=== PATIENT | male | born 1930 | race Caucasian/White ===

== ENCOUNTER 2016-04-13 10:53 | Outpatient (CLI) | payer MEDICARE ==
[2016-04-13 15:37] LABS: Prothrombin Time 24.2 SEC (12.0-14.7)
== END 2016-04-13 10:54 | disposition home or self-care (01) ==
LOC: NAVSJIPCSP 10:53
PROVIDERS: ATTEND Family Medicine
DX: I48.0 Paroxysmal atrial fibrillation (principal)
CPT/HCPCS: 36415; 85610

== ENCOUNTER 2016-04-13 12:44 | Outpatient (CLI) | payer MEDICARE | END 2016-04-13 12:45 | disposition home or self-care (01) | LOC: NAVSJIPCSP 12:44 | PROVIDERS: ATTEND Family Medicine | DX: I48.0 Paroxysmal atrial fibrillation (principal) ==

== ENCOUNTER 2016-05-24 08:20 | Outpatient (CLI) | payer MEDICARE ==
[2016-05-24 12:34] LABS: #Basophils 0.1 thou/uL (0.0-0.2); #Eosinphils 0.4 thou/uL (0.0-0.7); #Lymphocytes 1.5 thou/uL (1.20-3.40); #Monocytes 0.5 thou/uL (0.11-0.59); #Neutrophils 4.3 thou/uL (1.40-6.50); %Basophils 1.3 % (0.0-1.0); %Eosinophils 5.6 % (0.0-10.0); %Lymphocytes 22.3 % (21.0-51.0); %Monocytes 7.9 % (0.0-10.0); Hematocrit 48.2 % (42.0-52.0); Mean Platelet Volume 7.4 fL (7.4-10.4); Red Blood Cell (RBC) Count 5.57 mill/uL (4.70-6.10); White Blood Cell (WBC) Count 6.9 thou/uL (4.8-10.8)
[2016-05-24 12:44] LABS: ALT (SGPT) 34 U/L (0-55); AST (SGOT) 31 U/L (5-34); Alkaline Phosphatase 59 U/L (40-150); Anion Gap 17 mmol/L (10-20); BUN (Urea Nitrogen) 17 mg/dL (8.4-25.7); Bilirubin, Direct 0.3 mg/dL (0.1-0.3); Bilirubin, Total 0.8 mg/dL (0.2-1.2); Calc. Creatinine Clearance 0 mL/min (70-130); Calcium 9.2 mg/dL (7.8-10.44); Carbon Dioxide 20 mmol/L (23-31); Chloride 107 mmol/L (98-107); Estimated GFR-MDRD 75; LDL Cholesterol, Calculated 53 mg/dL; Protein, Total 6.7 g/dL (5.8-8.1)
[2016-05-24 12:53] LABS: Hemoglobin A1c 5.7 % (4.0-6.0)
[2016-05-24 13:23] LABS: Prothrombin Time 20.9 SEC (12.0-14.7)
== END 2016-05-24 08:21 ==
LOC: NAVSJIPCSP 08:20
PROVIDERS: ATTEND Family Medicine
DX: Z00.8 Encounter for other general examination (principal); E78.5 Hyperlipidemia, unspecified; I48.0 Paroxysmal atrial fibrillation; I10 Essential (primary) hypertension; Z79.899 Other long term (current) drug therapy
CPT/HCPCS: 36415; 80048; 80061; 80076; 83036; 84443; 85025; 85610

== ENCOUNTER 2016-06-29 14:13 | Outpatient (CLI) | payer MEDICARE ==
[2016-06-29 15:43] LABS: INR-International Normal Ratio 2.5; Prothrombin Time 28.1 SEC (12.0-14.7)
== END 2016-06-29 14:14 | disposition home or self-care (01) ==
LOC: NAV LABSP 14:13
PROVIDERS: ATTEND Family Medicine
DX: I48.0 Paroxysmal atrial fibrillation (principal)
CPT/HCPCS: 36415; 85610

== ENCOUNTER 2016-07-27 14:19 | Outpatient (CLI) | payer MEDICARE ==
[2016-07-27 17:15] LABS: INR-International Normal Ratio 2.5; Prothrombin Time 27.9 SEC (12.0-14.7)
== END 2016-07-27 14:20 | disposition home or self-care (01) ==
LOC: NAVSJIPCSP 14:19
PROVIDERS: ATTEND Family Medicine
DX: Z51.81 Encounter for therapeutic drug level monitoring (principal); I48.0 Paroxysmal atrial fibrillation; Z79.01 Long term (current) use of anticoagulants
CPT/HCPCS: 85610

== ENCOUNTER 2016-08-24 11:43 | Outpatient (CLI) | payer MEDICARE ==
[2016-08-24 13:27] LABS: INR-International Normal Ratio 1.8; Prothrombin Time 21.5 SEC (12.0-14.7)
== END 2016-08-24 11:44 | disposition home or self-care (01) ==
LOC: NAVSJIPCSP 11:43
PROVIDERS: ATTEND Family Medicine
DX: I48.0 Paroxysmal atrial fibrillation (principal)
CPT/HCPCS: 36415; 85610

== ENCOUNTER 2016-09-23 08:23 | Outpatient (CLI) | payer MEDICARE ==
[2016-09-23 12:31] LABS: #Basophils 0.1 thou/uL (0.0-0.2); #Eosinphils 0.4 thou/uL (0.0-0.7); #Lymphocytes 1.2 thou/uL (1.20-3.40); #Monocytes 0.6 thou/uL (0.11-0.59); #Neutrophils 4.7 thou/uL (1.40-6.50); %Basophils 1.6 % (0.0-1.0); %Eosinophils 5.5 % (0.0-10.0); %Lymphocytes 17.2 % (21.0-51.0); %Neutrophils 66.7 % (42.0-75.0); Hemoglobin 15.7 g/dL (14.0-18.0); Mean Corpuscular HGB CONC 33.1 g/dL (32.0-36.0); Mean Corpuscular Hemoglobin 28.5 pg (27.0-31.0); Mean Corpuscular Volume 86.2 fl (80.0-94.0); Mean Platelet Volume 7.3 fL (7.4-10.4); Platelet Count 195 thou/uL (130-400); RBC Distribution Width 12.1 % (11.5-14.5); Red Blood Cell (RBC) Count 5.51 mill/uL (4.70-6.10)
[2016-09-23 12:50] LABS: ALT (SGPT) 30 U/L (8-55); AST (SGOT) 35 U/L (5-34); Albumin 4.5 g/dL (3.4-4.8); Alkaline Phosphatase 61 U/L (40-150); Anion Gap 18 mmol/L (10-20); BUN (Urea Nitrogen) 15 mg/dL (8.4-25.7); Bilirubin, Direct 0.4 mg/dL (0.1-0.3); Bilirubin, Total 0.8 mg/dL (0.2-1.2); Calc. Creatinine Clearance 0 mL/min (70-130); Calcium 9.4 mg/dL (7.8-10.44); Carbon Dioxide 23 mmol/L (23-31); Cardiac Risk 3.5 (Less than 4.5); Chloride 107 mmol/L (98-107); Cholesterol 118 mg/dl (< 200 Desired); Estimated GFR-MDRD 76; Glucose 129 mg/dL (83-110); HDL Cholesterol 34 mg/dL (>60 Neg Risk); LDL Cholesterol, Calculated 55 mg/dL; Potassium 4.5 mmol/L (3.5-5.1); Protein, Total 6.5 g/dL (5.8-8.1); Sodium 143 mmol/L (136-145); Triglycerides 145 mg/dL (Less than 150)
[2016-09-23 13:21] LABS: Hemoglobin A1c 5.8 % (4.0-6.0)
== END 2016-09-23 08:24 ==
LOC: NAVSJIPCSP 08:23
PROVIDERS: ATTEND Family Medicine
DX: Z00.8 Encounter for other general examination (principal); E78.5 Hyperlipidemia, unspecified; I10 Essential (primary) hypertension; G56.00 Carpal tunnel syndrome, unspecified upper limb; I48.0 Paroxysmal atrial fibrillation; Z79.899 Other long term (current) drug therapy
CPT/HCPCS: 36415; 80048; 80061; 80076; 83036; 84443; 85025; 85610

== ENCOUNTER 2016-10-01 11:35 | Outpatient (CLI) | payer MEDICARE ==
[2016-10-01 12:42] LABS: INR-International Normal Ratio 1.9; Prothrombin Time 22.6 SEC (12.0-14.7)
== END 2016-10-01 11:36 | disposition home or self-care (01) ==
LOC: NAVSJIPCSP 11:35
PROVIDERS: ATTEND Family Medicine
DX: I48.0 Paroxysmal atrial fibrillation (principal)
CPT/HCPCS: 36415; 85610

== ENCOUNTER 2016-11-03 13:28 | Outpatient (CLI) | payer MEDICARE ==
[2016-11-03 19:03] LABS: INR-International Normal Ratio 2.3; Prothrombin Time 25.8 SEC (12.0-14.7)
== END 2016-11-03 13:29 | disposition home or self-care (01) ==
LOC: NAVSJIPCSP 13:28
PROVIDERS: ATTEND Family Medicine
DX: I48.0 Paroxysmal atrial fibrillation (principal)
CPT/HCPCS: 85610

== ENCOUNTER 2017-03-03 09:06 | Outpatient (CLI) | payer MEDICARE ==
--- NOTE | 2017-03-03 12:13 | ULT ---
CAROTID ULTRASOUND: History: Carotid stenosis per screening outside hospital ultrasound. Technique: Multiplanar grayscale and color doppler images were obtained in carotid ultrasound. Spectr al analysis of the doppler waveforms were performed. FINDINGS: A moderate amount of plaque is seen surrounding both carotid bifurcations, right greater than left. T he doppler waveforms are normal bilaterally. Peak systolic velocity in the right ICA is 78 cm/sec. Peak systolic velocity in the right CCA is 89 c m/sec. The right ICA/CCA ratio is 0.9. Peak systolic velocity in the left ICA is 79 cm/sec. Peak systolic velocity in the left CCA is 91 cm/ sec. The left ICA/CCA ratio is 0.8. Both vertebral arteries demonstrate antegrade flow without focal stenosis. IMPRESSION: No evidence of hemodynamically significant stenosis. POS: DEBBIE
--- NOTE | 2017-03-03 12:15 | ULT ---
RENAL ULTRASOUND: History: Renal cyst seen on prior outside screening ultrasound. Technique: Multiplanar grayscale and color doppler images were obtained in a renal ultrasound. FINDINGS: Numerous cysts are seen in the bilateral kidneys. The largest is seen on the left measuring 1.8 cm in greatest dimension. There is no evidence of hydronephrosis or shadowing calculi in the kidneys. The kidneys measure 12.3 and 12.5 cm in length on the right and left, respectively. Multiple calcified granulomas are seen in the spleen. The urinary bladder is unremarkable. IMPRESSION: Bilateral renal cysts. POS: [facility]
--- NOTE | 2017-03-03 13:27 | ULT ---
THYROID ULTRASOUND: DATE: 03/03/17. HISTORY: History of metabolic disease. The patient has fullness in the left side of the neck for 2 years. FINDINGS: The right lobe of the thyroid gland measures 3.8 cm x 1.4 cm x 1.7 cm with enlargement of the left lo be measuring 9.5 cm x 5.4 cm x 6.1 cm. There is a large complex cystic mass associated with the left lobe of the thyroid gland which measure s 7.5 cm x 4 cm x 4.8 cm with multiple septations within this large cystic lesion. There are at least 3 separate nodules within the right lobe of the thyroid gland. There is a complex cystic and solid nodule seen at the junction of the mid portion superior pole right lobe of the thyr oid gland measuring 1.3 cm. There is a smaller heterogeneous nodule seen in the mid portion left lob e of the thyroid gland measuring 0.6 cm with an even smaller heterogeneous nodule in the junction of the mid portion superior pole right lobe of the thyroid gland measuring 0.3 cm. The thyroid isthmus measures 0.2 cm in AP dimensions. IMPRESSION: 1. Large multiseptated complex cystic lesion involving the left lobe of the thyroid gland. 2. Three heterogeneous nodules within the right lobe of the thyroid gland, the largest at the juncti on of the mid and superior portion right lobe of the thyroid gland measuring 1.3 cm. POS: [facility]
== END 2017-03-03 09:07 | disposition home or self-care (01) ==
LOC: NAV ULT 09:06
PROVIDERS: ATTEND Family Medicine
DX: N28.1 Cyst of kidney, acquired (principal); I65.29 Occlusion and stenosis of unspecified carotid artery; E07.89 Other specified disorders of thyroid; E04.2 Nontoxic multinodular goiter; Z86.39 Personal history of other endocrine, nutritional and metabolic disease
CPT/HCPCS: 76536; 76770; 93880

== ENCOUNTER 2019-07-04 14:16 | Emergency (ER) | payer MEDICARE ==
[~2019-07-04 14:16] MED LIST: Iopamidol 370 76% 100 ML VIAL ONE
[2019-07-04] MEDS ORDERED: Acetaminophen/Codeine 30-300mg Tablet ONE (14:45)
[2019-07-04 14:47] LABS: #Basophils 0.1 thou/uL (0.0-0.2); #Eosinphils 0.3 thou/uL (0.0-0.7); #Lymphocytes 1.6 thou/uL (1.20-3.40); #Monocytes 0.5 thou/uL (0.11-0.59); #Neutrophils 5.1 thou/uL (1.40-6.50); %Basophils 1.1 % (0.0-1.0); %Eosinophils 4.3 % (0.0-10.0); %Lymphocytes 20.9 % (21.0-51.0); %Neutrophils 66.6 % (42.0-75.0); Mean Corpuscular HGB CONC 33.1 g/dL (32.0-36.0); Mean Corpuscular Hemoglobin 29.1 pg (27.0-31.0); Mean Platelet Volume 7.3 fL (7.4-10.4); Platelet Count 199 thou/uL (130-400); RBC Distribution Width 12.5 % (11.5-14.5); Red Blood Cell (RBC) Count 5.15 mill/uL (4.70-6.10); White Blood Cell (WBC) Count 7.7 thou/uL (4.8-10.8)
[2019-07-04 14:52] LABS: INR-International Normal Ratio 2.4; Prothrombin Time 26.1 SEC (12.0-14.7)
[2019-07-04 15:00] LABS: ALT (SGPT) 30 U/L (8-55); AST (SGOT) 34 U/L (5-34); Albumin 4.5 g/dL (3.4-4.8); Alkaline Phosphatase 71 U/L (40-110); Anion Gap 15 mmol/L (10-20); BUN (Urea Nitrogen) 18 mg/dL (8.4-25.7); Bilirubin, Total 0.6 mg/dL (0.2-1.2); Calc. Creatinine Clearance 0 mL/min (70-130); Calcium 9.4 mg/dL (7.8-10.44); Carbon Dioxide 22 mmol/L (23-31); Chloride 107 mmol/L (98-107); Estimated GFR-MDRD 67; Globulin 2.4 g/dL (2.4-3.5); Glucose 159 mg/dL (83-110); Potassium 4.3 mmol/L (3.5-5.1); Protein, Total 6.9 g/dL (5.8-8.1); Sodium 140 mmol/L (136-145)
[2019-07-04] MEDS ORDERED: Phytonadione 10 MG/ML AMP ONE (15:11)
[2019-07-04] MEDS ORDERED: KETAMINE 100 MG/ML (5ML VIAL) ONE (15:18)
[2019-07-04] MEDS ORDERED: Rocuronium Bromide 10 MG/ML (10ML VIAL) ONE (15:18)
--- NOTE | 2019-07-04 15:31 | CT ---
CT BRAIN: Date: 07/04/2019 PROVIDED CLINICAL HISTORY: Trauma. FINDINGS: No comparisons. The ventricular system appears normal in size and morphology. There is no evidence for intracranial h emorrhage or mass effect. The extracranial soft tissues and osseous structures demonstrate an unremar kable CT appearance. IMPRESSION: No evidence for intracranial hemorrhage or mass effect. POS: [facility]
--- NOTE | 2019-07-04 16:54 | RAD ---
RADIOGRAPH CHEST 1 VIEW: Date: 07/04/19 Time: 3:40 p.m. HISTORY: 89-year-old male status post intubation, status post acute chest trauma. COMPARISON: No prior chest radiographs. FINDINGS: Trachea is significantly deviated to the right, by a large left neck mass (demonstrated to be a large left thyroid mass on chest CT today). Endotracheal tube tip approximately 3.5 to 4 cm superior to th e rufus. Prominent interstitial markings. Several right lateral rib fractures, some old, and at leas t one acute. No gross consolidation. Supine positioning makes this insensitive for pneumothorax detec tion. IMPRESSION: 1. Status post intubation with endotracheal tube in the mid thoracic trachea. 2. Significant tracheal deviation to the right due to large left thyroid nodule. 3. Old and acute right rib fractures. JN [] POS: [facility]IN
--- NOTE | 2019-07-04 17:39 | CT ---
CT ANGIOGRAM GREAT VESSELS NECK WITH IV CONTRAST AND 3D MIP RECONSTRUCTIONS: 07/04/19 PROVIDED CLINICAL HISTORY: Neck trauma. FINDINGS: Correlation is made with thyroid ultrasound 03/03/17. There is a large cystic mass emanating from the left thyroid lobe extending both substernally and environmental web crawler nially with respect to the normal position of the thyroid gland. This measures at least 6.9 cm in gre atest transverse dimension and at least 8.6 cm in craniocaudal dimension. This produces mass effect u lester the trachea and esophagus, deviating them right of midline. 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 The amount of contrast present within the arterial system is suboptimal in terms of evaluating for ar terial injury. There is no gross evidence for such. There are innumerable, not pathologically enlarged lymph nodes present within the neck and several wi thin the visualized upper mediastinum. The visualized lung apices are free of significant opacity. There is a fracture of the medial left clavicle with minimal anterior displacement of the lateral fra gment with respect to the medial fragment. There is mild surrounding edema/hematoma. There is no evidence for a hemodynamically significant stenosis involving either internal carotid art makayla. The vertebral arteries appear grossly normal. The visualized aerodigestive tract appears otherwi se unremarkable. The cervical spine demonstrates no evidence for fracture or traumatic subluxation. Cervical degenerat ene changes are seen. A lymphoproliferative disorder should be considered. IMPRESSION: 1. Displaced left medial clavicle fracture. 2. Large cystic thyroid mass, also described on prior ultrasound of 03/03/17 and likely enlarged with respect to that study. POS: [facility]
--- NOTE | 2019-07-04 17:47 | CT ---
CT CHEST WITH IV CONTRAST: 07/04/19 HISTORY: Trauma. Left shoulder pain and chest pain. FINDINGS: There is a large complex mass with calcifications involving the inferior pole of the left lobe of the thyroid gland extending into the thoracic inlet measuring 6.3 x 6.3 x 7.5 cm. Mediastinal lymphadeno akila is seen measuring up to 13 mm. No mediastinal hematoma is identified. No pleural or pericardial effusions are seen. There are vascular calcifications without evidence of aneurysmal dilatation of t he thoracic aorta. No pneumothoraces or pulmonary contusions are identified. There are dependent velazquez ges in the posterior lung bases. There are acute fractures involving the right first, second and four th ribs and old fractures of the right seventh and eighth ribs. There is also questionable fracture i nvolving the left tenth rib. Upper abdominal tomograms demonstrate a 12 mm cyst in the superior pole of the left kidney, calcified granulomas in the spleen. The spleen is enlarged measuring 14.4 cm. There is a fracture involving the medial aspect of the left clavicle. There are degenerative changes of the thoracic spine without evidence of fracture or subluxation. IMPRESSION: 1. Rib fractures without evidence of pneumothorax. 2. Left thyroid lobe mass and mediastinal lymphadenopathy. Further evaluation with ultrasound gu ided biopsy is recommended. 3. Splenomegaly. 4. Left clavicular fracture. POS: [facility]
== END 2019-07-04 15:53 | disposition short-term general hospital (02) ==
LOC: NAV ERS 14:16
DX: S42.012A Anterior displaced fracture of sternal end of left clavicle, initial encounter for closed fracture (principal); S22.41XA Multiple fractures of ribs, right side, initial encounter for closed fracture; S10.93XA Contusion of unspecified part of neck, initial encounter; S80.812A Abrasion, left lower leg, initial encounter; I48.91 Unspecified atrial fibrillation; Z79.01 Long term (current) use of anticoagulants; Z79.899 Other long term (current) drug therapy; V59.9XXA Occupant (driver) (passenger) of pick-up truck or van injured in unspecified traffic accident, initial encounter
CPT/HCPCS: 31500; 51702; 70450; 70498; 71045; 71260; 80053; 85025; 85610; 85730; J3430; L0120; Q9967

== ENCOUNTER 2019-07-09 11:01 | Outpatient (CLI) | payer MEDICARE ==
[2019-07-09 11:20] LABS: INR-International Normal Ratio 1.4
[2019-07-09 12:05] LABS: #Basophils 0.1 thou/uL (0.0-0.2); #Eosinphils 0.4 thou/uL (0.0-0.7); #Lymphocytes 1.8 thou/uL (1.20-3.40); #Monocytes 0.8 thou/uL (0.11-0.59); #Neutrophils 6.7 thou/uL (1.40-6.50); %Basophils 0.8 % (0.0-1.0); %Eosinophils 3.7 % (0.0-10.0); %Lymphocytes 18.4 % (21.0-51.0); %Monocytes 8.1 % (0.0-10.0); Anion Gap 15 mmol/L (10-20); BUN (Urea Nitrogen) 17 mg/dL (8.4-25.7); Calc. Creatinine Clearance 0 mL/min (70-130); Calcium 8.4 mg/dL (7.8-10.44); Carbon Dioxide 25 mmol/L (23-31); Chloride 100 mmol/L (98-107); Estimated GFR-MDRD 83; Glucose 138 mg/dL (83-110); Hemoglobin 12.9 g/dL (14.0-18.0); Magnesium 2.2 mg/dL (1.6-2.6); Mean Corpuscular HGB CONC 33.8 g/dL (32.0-36.0); Mean Corpuscular Hemoglobin 29.6 pg (27.0-31.0); Mean Corpuscular Volume 87.7 fL (78.0-98.0); Mean Platelet Volume 7.4 fL (7.4-10.4); Platelet Count 222 thou/uL (130-400); Potassium 4.3 mmol/L (3.5-5.1); RBC Distribution Width 12.4 % (11.5-14.5); Red Blood Cell (RBC) Count 4.35 mill/uL (4.70-6.10); Sodium 136 mmol/L (136-145); White Blood Cell (WBC) Count 9.7 thou/uL (4.8-10.8)
[2019-07-09 12:06] LABS: Digoxin 0.61 ng/mL (0.8-2.0)
== END 2019-07-09 11:02 | disposition home or self-care (01) ==
LOC: NAV SJFMSP 11:01 → NAVSJIPCSP 11:02
PROVIDERS: ATTEND Family Medicine
DX: Z51.81 Encounter for therapeutic drug level monitoring (principal); I48.0 Paroxysmal atrial fibrillation; R79.0 Abnormal level of blood mineral; Z79.899 Other long term (current) drug therapy; Z79.01 Long term (current) use of anticoagulants
CPT/HCPCS: 36415; 80048; 80162; 83735; 85025; 85610